=== PATIENT | female | born 1960 | race Caucasian/White ===

== ENCOUNTER 2020-03-21 19:27 | Inpatient (IN) | payer BC ==
[~2020-03-21] VITALS: Ht 175.3 cm; Wt 81.4 kg
[2020-03-21] MEDS ORDERED: aspirin 81mg tab.chew PO ONE (19:40)
[2020-03-21 20:09] LABS: BASOPHILS # (AUTO) 0.1 X10'3 (0-0.2); BASOPHILS % (AUTO) 0.8 % (0-1); EOSINOPHILS # (AUTO) 0.1 X10'3 (0-0.9); EOSINOPHILS % (AUTO) 0.9 % (0-6); HEMATOCRIT 43.4 % (35.0-45.0); HEMOGLOBIN 14.7 g/dl (12.0-16.0); LYMPHOCYTES # (AUTO) 4.1 X10'3 (1.1-4.8); LYMPHOCYTES % (AUTO) 37.3 % (21-51); MEAN CORPUSCULAR HEMOGLOBIN 30.4 PG (27.0-31.0); MEAN CORPUSCULAR HGB CONC 33.8 g/dL (33.0-36.5); MEAN CORPUSCULAR VOLUME 90.1 FL (78-98); MEAN PLATELET VOLUME 8.4 FL (7.4-10.4); MONOCYTES # (AUTO) 0.8 X10'3 (0-0.9); MONOCYTES % (AUTO) 7.1 % (2-12); NEUTROPHILS # (AUTO) 5.9 X10'3 (1.8-7.7); NEUTROPHILS % (AUTO) 53.9 % (42-75); PLATELET COUNT 246 X10'3 (140-440); RED BLOOD COUNT 4.82 X10'6 (4.20-5.60); RED CELL DISTRIBUTION WIDTH 13.4 % (11.5-14.5)
[2020-03-21 20:17] LABS: ALANINE AMINOTRANSFERASE 29 U/L (12-78); ALBUMIN 4.2 G/DL (3.4-5.0); ALBUMIN/GLOBULIN RATIO 1.2 (1.1-1.5); ALKALINE PHOSPHATASE 77 IU/L (46-116); ANION GAP 14 (8-16); ASPARTATE AMINO TRANSFERASE 27 U/L (10-37); BILIRUBIN,TOTAL 0.5 MG/DL (0.1-1.0); BLOOD UREA NITROGEN 15 MG/DL (7-18); BUN/CREATININE RATIO 21.1 (6.6-38.0); CALCIUM 9.3 MG/DL (8.5-10.1); CHLORIDE 100 MMOL/L (99-107); CREATININE 0.71 MG/DL (0.40-0.90); GLUCOSE 103 MG/DL (70-104); POTASSIUM 3.7 MMOL/L (3.5-5.1); SODIUM 137 MMOL/L (135-145); TOTAL CARBON DIOXIDE 23.4 MMOL/L (24-32); TOTAL PROTEIN 7.8 G/DL (6.4-8.2); eGFR 84 ML/MIN
[2020-03-21 21:15] LABS: ETHANOL < 0.010 GM/DL (0.0-0.010)
[2020-03-21 21:36] LABS: MAGNESIUM 2.1 MG/DL (1.5-2.4)
[2020-03-21 21:53] LABS: PARTIAL THROMBOPLASTIN TIME 29 SECONDS (22-32)
--- NOTE | 2020-03-21 22:26 | NUR ---
Pt vitals show HR 136 a-fib. Dr. Camarillo advised of pt vitals and condition.
[2020-03-21 22:40] LABS: URINE AMPHETAMINE SCREEN NEGATIVE (Neg); URINE BARBITUATE SCREEN NEGATIVE (Neg); URINE BENZODIAZEPINES SCREEN NEGATIVE (Neg); URINE CANNABINOID SCREEN POSITIVE (Neg); URINE COCAINE SCREEN NEGATIVE (Neg); URINE METHADONE SCREEN NEGATIVE (Neg); URINE OPIATE SCREEN NEGATIVE (Neg); URINE PHENCYCLIDINE SCREEN NEGATIVE (Neg)
[2020-03-21] MEDS ORDERED: diltiazem 5mg/ml 5ml inj. IV ONE (22:45)
[2020-03-21] MEDS ORDERED: normal saline 1000ml 1,000 ML IV ONE (22:45)
[2020-03-21] MEDS ORDERED: enoxaparin 100mg/ml syringe SUBCUT ONE (22:45)
[2020-03-21] MEDS ORDERED: diltiazem-NS 100mg/100ml 100 ML IV SCH (22:50)
[2020-03-21] MEDS ORDERED: normal saline 1000ML IV soln IVB ONE (23:05)
--- NOTE | 2020-03-21 23:23 | NUR ---
Dr. Camarillo advised of pt bp of 98/75. Dr. Camarillo advised to not do Cardizem push, instead to just start pt on drip for Cardizem of 5ml/hr as well as give IVB of NS prior. Pt given bolus and 5ml/hr Cardizem started. BP at time of start 107/62, hr 131, rr 12, spo2 97. pt denies any complaints at this time besides feeling tired.
[2020-03-21] MEDS ORDERED: magnesium Cl slow-release 64mg tablet PO PRN (23:25)
[2020-03-21] MEDS ORDERED: acetaminophen 325mg tablet PO PRN (23:25)
[2020-03-21] MEDS ORDERED: potassium Cl 20 mEq SR tablet PO PRN (23:25)
[2020-03-21] MEDS ORDERED: magnesium 4gm in 100ml NS 100 ML IV PRN (23:25)
[2020-03-21] MEDS ORDERED: potassium Cl 40MEQ/1/2NS 520ml 520 ML IV PRN ×2 (23:25)
[2020-03-21] MEDS ORDERED: magnesium 2GM in 50ml NS 50 ML IV PRN (23:25)
[2020-03-21] MEDS ORDERED: ondansetron/PF 4mg/2ml inj IV PRN (23:25)
[2020-03-22] MEDS ORDERED: MAGN400C PO (01:32)
[2020-03-22] MEDS ORDERED: enoxaparin 80mg/0.8ml syringe SUBCUT ONE (01:55)
[2020-03-22 02:02] LABS: BASOPHILS # (AUTO) 0.1 X10'3 (0-0.2); BASOPHILS % (AUTO) 1.2 % (0-1); EOSINOPHILS # (AUTO) 0.2 X10'3 (0-0.9); EOSINOPHILS % (AUTO) 1.7 % (0-6); LYMPHOCYTES # (AUTO) 4.2 X10'3 (1.1-4.8); LYMPHOCYTES % (AUTO) 41.7 % (21-51); MEAN CORPUSCULAR HEMOGLOBIN 30.5 PG (27.0-31.0); MEAN CORPUSCULAR HGB CONC 34.2 g/dL (33.0-36.5); MEAN CORPUSCULAR VOLUME 89.2 FL (78-98); MONOCYTES # (AUTO) 0.6 X10'3 (0-0.9); MONOCYTES % (AUTO) 6.3 % (2-12); NEUTROPHILS # (AUTO) 4.9 X10'3 (1.8-7.7); NEUTROPHILS % (AUTO) 49.1 % (42-75); PLATELET COUNT 201 X10'3 (140-440); RED BLOOD COUNT 4.26 X10'6 (4.20-5.60); RED CELL DISTRIBUTION WIDTH 13.4 % (11.5-14.5)
[2020-03-22 02:20] LABS: ALBUMIN 3.2 G/DL (3.4-5.0); ANION GAP 8 (8-16); BLOOD UREA NITROGEN 13 MG/DL (7-18); BUN/CREATININE RATIO 23.2 (6.6-38.0); CALCIUM 8.7 MG/DL (8.5-10.1); CHLORIDE 109 MMOL/L (99-107); CREATININE 0.56 MG/DL (0.40-0.90); GLUCOSE 117 MG/DL (70-104); MAGNESIUM 2.1 MG/DL (1.5-2.4); POTASSIUM 3.2 MMOL/L (3.5-5.1); SODIUM 144 MMOL/L (135-145); TOTAL CARBON DIOXIDE 26.8 MMOL/L (24-32); eGFR > 90 ML/MIN
--- NOTE | 2020-03-22 03:57 | NUR ---
Paused Cardizem drip for Pulse 51, BP 84/51, Spo2 94%. Pt A&Ox4 with no new complaints. Pt was sleeping. Paged Dr. Warren.
[2020-03-22] MEDS: K and/or MAG REPLACEMENT MC SCH ×2 (04:19→20:00)
[2020-03-22] MEDS: potassium Cl 20 mEq SR tablet PO PRN ×3 (04:45→14:50)
[2020-03-22] MEDS ORDERED: diltiazem-NS 100mg/100ml 125 ML IV SCH (06:00)
--- NOTE | 2020-03-22 06:42 | NUR ---
patient received on cardizem drip 5ml/hour.assisted patient to bsc,call lgith within reach,denies discomfort.
--- NOTE | 2020-03-22 06:59 | NUR ---
called Dr. Warren's phone no answer,unable to leave mesage,voicemail full re: nithin mcmillan bp 101/62 in an out afib but consistently hr 60's.Denies discomfort.Also paged Dr. Stewart.Awaiting call back.
--- NOTE | 2020-03-22 07:06 | NUR ---
Dr. Stewart called and ordered to stop cardizem drip and start cardizem 60mg po daily.
[2020-03-22] MEDS ORDERED: diltiazem 30mg tablet PO SCH (08:00)
[2020-03-22] MEDS: docusate sod 100mg capsule PO SCH ×2 (08:00→20:00)
[2020-03-22] MEDS ORDERED: NO HOME MEDS (08:16)
[2020-03-22 08:51] VITALS: BP 110/75
--- NOTE | 2020-03-22 10:08 | NUR ---
HOLDING DAILY PO CARDIZEM UNTIL HEART RATE IS CONSISTENTLY OVER 60.
--- NOTE | 2020-03-22 10:53 | NUR ---
Heart rate to 40 while asleep, over 60 when awakened.
[2020-03-22 11:00] VITALS: BP 99/63
[2020-03-22] MEDS ORDERED: nitroGLYCERIN 0.4mg SUBLingual tab SL PRN (11:50)
[2020-03-22] MEDS ORDERED: aminophylline 250mg/10ml inj. IV PRN (11:50)
[2020-03-22] MEDS ORDERED: regadenoson 0.4mg/5ml syringe IV ONE (11:50)
[2020-03-22] MEDS ORDERED: metoprolol tartrate 1mg/ml inj IV PRN (11:50)
--- NOTE | 2020-03-22 12:30 | NUR ---
Pt had decaf coffee for breakfast, will have nm stress test tomorrow 03/23
[2020-03-22] MEDS: diltiazem 30mg tablet PO SCH ×2 (14:00→20:00)
--- NOTE | 2020-03-22 14:00 | NUR ---
Discussed plan of care for monitoring cardiac rhythm and labs, risk factors and stress test tomorrow. Pt in agreement with plan of care.
[2020-03-22 15:00] VITALS: BP 118/66
[2020-03-22 18:00] VITALS: BP 127/88
[2020-03-22 22:00] VITALS: BP 96/52
[2020-03-23] VITALS (10 sets, daily range): BP systolic 97–148; BP diastolic 62–80
[2020-03-23] MEDS: diltiazem 30mg tablet PO SCH ×3 (02:00→14:28)
[2020-03-23 06:13] LABS: BASOPHILS # (AUTO) 0.1 X10'3 (0-0.2); EOSINOPHILS # (AUTO) 0.2 X10'3 (0-0.9); EOSINOPHILS % (AUTO) 2.4 % (0-6); HEMATOCRIT 44.2 % (35.0-45.0); HEMOGLOBIN 14.7 g/dl (12.0-16.0); LYMPHOCYTES # (AUTO) 3.2 X10'3 (1.1-4.8); LYMPHOCYTES % (AUTO) 40.2 % (21-51); MEAN CORPUSCULAR HEMOGLOBIN 30.2 PG (27.0-31.0); MEAN CORPUSCULAR HGB CONC 33.4 g/dL (33.0-36.5); MEAN CORPUSCULAR VOLUME 90.6 FL (78-98); MEAN PLATELET VOLUME 8.3 FL (7.4-10.4); MONOCYTES # (AUTO) 0.5 X10'3 (0-0.9); MONOCYTES % (AUTO) 6.5 % (2-12); NEUTROPHILS # (AUTO) 3.9 X10'3 (1.8-7.7); NEUTROPHILS % (AUTO) 49.9 % (42-75); PLATELET COUNT 241 X10'3 (140-440); RED BLOOD COUNT 4.87 X10'6 (4.20-5.60); RED CELL DISTRIBUTION WIDTH 13.2 % (11.5-14.5); WHITE BLOOD COUNT 7.9 X10'3 (4.5-11.0)
[2020-03-23 06:20] LABS: ANION GAP 8 (8-16); BLOOD UREA NITROGEN 8 MG/DL (7-18); BUN/CREATININE RATIO 12.7 (6.6-38.0); CALCIUM 9.4 MG/DL (8.5-10.1); CHLORIDE 107 MMOL/L (99-107); CREATININE 0.63 MG/DL (0.40-0.90); GLUCOSE 101 MG/DL (70-104); MAGNESIUM 2.2 MG/DL (1.5-2.4); POTASSIUM 3.7 MMOL/L (3.5-5.1); SODIUM 143 MMOL/L (135-145); eGFR > 90 ML/MIN
--- NOTE | 2020-03-23 06:29 | NUR ---
Patient in room PCU 3024. I have received report from DAILY Bar and had the opportunity to ask questions and assume patient care.
[2020-03-23] MEDS: docusate sod 100mg capsule PO SCH (08:00)
[2020-03-23] MEDS: K and/or MAG REPLACEMENT MC SCH (08:00)
--- NOTE | 2020-03-23 13:37 | NUR ---
Paged Terry PAGER ID: [phone] MESSAGE: Nery Platt [id number] Pt's Radha Scan has resulted, can she eat? Thanks Concepción :)
[2020-03-23] MEDS ORDERED: ASPI81TA52 PO (14:55)
[2020-03-23] MEDS ORDERED: DILT180C66 PO (14:55)
--- NOTE | 2020-03-23 16:02 | NUR ---
Patient stable for discharge per MD orders. All instructions were given, questions were answered appropriately. All belongings were collected and sent with patient. PIV discontinued, cannula intact. Tele discontinued, telephonic nurse case manager notified. Informed pt that medications were sent to [facility] on [address], and to follow up with PCP within a week. Walked pt to [facility] and assisted into personal vehicle with .
== END 2020-03-23 16:02 | disposition home or self-care (01) | DRG 309 ==
LOC: ER 19:28 → ED HOLD 23:22 → PCU 3S 03-22 08:18
PROVIDERS: ADMIT Internal Medicine; ATTEND Family Medicine
PROC: 4A02XM4 Measurement of Cardiac Total Activity, External Approach (ICD-10-PCS; principal; 2020-03-23)
PROC: 3E073KZ Introduction of Other Diagnostic Substance into Coronary Artery, Percutaneous Approach (ICD-10-PCS; 2020-03-23)
DX: I48.91 Unspecified atrial fibrillation (principal); I20.0 Unstable angina; G89.29 Other chronic pain; E87.6 Hypokalemia; M54.9 Dorsalgia, unspecified; Z82.49 Family history of ischemic heart disease and other diseases of the circulatory system; Z87.891 Personal history of nicotine dependence; Z90.49 Acquired absence of other specified parts of digestive tract; Z88.0 Allergy status to penicillin; Z88.2 Allergy status to sulfonamides
CPT/HCPCS: 36415; 71045; 78452; 80048; 80053; 80305; 80320; 83735; 83880; 84443; 84484; 85025; 85610; 85730; 87081; 93005; 93017; 93306; 93308; 99291; A9500; G0378; J1650; J2785; J3490; J7030